=== PATIENT | female | born 1970 | race Caucasian/White ===

== ENCOUNTER 2017-04-18 11:38 | Emergency (ER) | payer MEDICARE, MEDICAID ==
[2017-04-18] MEDS ORDERED: ALPRAZolam TAB* 0.5 MG PO ONE (13:01)
[2017-04-18] MEDS ORDERED: Buprenorphine/Naloxone 8-2 MG SL TAB* 1 TAB PO ONE (13:07)
[2017-04-18 13:59] LABS: Comments Flag Yes; Hematocrit 28 % (35-47); Hemoglobin 9.9 g/dl (12.0-16.0); Mean Corpuscular HGB Conc 36 g/dl (31-36); Mean Corpuscular Hemoglobin 31 pg (27-31); Mean Corpuscular Volume 86 fL (80-97); Mean Platelet Volume 9 um3 (7.4-10.4); Red Blood Count 3.21 10^6/ul (4.0-5.4); Red Cell Distribution Width 13 % (10.5-15); White Blood Count 4.8 10^3/ul (3.5-10.8)
[2017-04-18] MEDS ORDERED: Buprenorphine/Naloxone 8-2 MG SL TAB* 1 TAB PO SCH (14:00)
[2017-04-18 14:12] LABS: ALT 14 U/L (7-52); AST 11 U/L (13-39); Albumin 3.7 g/dL (3.2-5.2); Alkaline Phosphatase 35 U/L (34-104); Anion Gap 8 mmol/L (2-11); BUN/Creatinine Ratio 18.8 (8-20); Blood Urea Nitrogen 12 mg/dL (6-24); CO2 Carbon Dioxide 24 mmol/L (22-32); Calcium 8.8 mg/dL (8.6-10.3); Chloride 102 mmol/L (101-111); EGFR African American 128.5 (>60); EGFR Non-African American 99.9 (>60); Globulin 2.2 g/dL (2-4); Glucose 88 mg/dL (70-100); Potassium 3.8 mmol/L (3.5-5.0); Sodium 134 mmol/L (133-145); Total Protein 5.9 g/dL (6.4-8.9)
[2017-04-18 14:34] LABS: Acetaminophen < 15 mcg/mL; Alcohol < 10 mg/dL (<10); Salicylate < 2.50 mg/dL (<30)
[2017-04-18 14:47] LABS: TSH (Thyroid Stimulating Horm) 0.75 mcIU/mL (0.34-5.60)
[2017-04-18 15:03] LABS: Urine Bacteria 1+ (Absent); Urine Bilirubin Negative (Negative); Urine Glucose Negative (Negative); Urine Nitrite Negative (Negative)
[2017-04-18 15:22] LABS: Benzodiazepine Urine Screen None Detected (None Detect)
[2017-04-18] MEDS ORDERED: Gabapentin CAP(*) 300 MG PO ONE ×2 (17:15→22:05)
[2017-04-18] MEDS ORDERED: diPHENhydraMINE PO* 50 MG PO ONE (17:56)
[2017-04-18] MEDS ORDERED: QUEtiapine TAB* 100 MG PO ONE (22:05)
[2017-04-18] MEDS ORDERED: Acetaminophen TAB* 325 MG PO ONE (22:05)
[2017-04-18] MEDS ORDERED: hydrOXYzine HCL TAB* 25 MG PO ONE (22:05)
[2017-04-18] MEDS ORDERED: traZODone TAB* 50 MG TAB PO ONE (22:05)
[2017-04-19] MEDS ORDERED: oxyCODONE/Acetamin 5/325 MG* TAB PO ONE (00:06)
[2017-04-19 02:33] VITALS: BP 131/78
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
== END 2017-04-19 02:10 | disposition short-term general hospital (02) ==
LOC: ED 11:38
DX: F11.23 Opioid dependence with withdrawal (principal); M54.9 Dorsalgia, unspecified; R63.4 Abnormal weight loss; G89.29 Other chronic pain
CPT/HCPCS: 36415; 80053; 80307; 80320; 80329; 81003; 81015; 84443; 85025; 87086; 99285; A9270-GY; G0480